=== PATIENT | female | born 1970 | race Caucasian/White ===

== ENCOUNTER 2020-07-11 19:25 | Emergency (ER) | payer MEDICAID ==
[~2020-07-11] VITALS: Ht 167.6 cm; Wt 63.5 kg
[2020-07-11 19:40] VITALS: BP_SYST 118
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
--- NOTE | 2020-07-11 19:55 | NUR ---
DR ROY IN TO ASSESS
--- NOTE | 2020-07-11 20:13 | NUR ---
X-RAY IN PROGRESS
--- NOTE | 2020-07-11 20:20 | NUR ---
REASSESSED, PT CALM, ALERT, MD AT BEDSIDE
[2020-07-11 20:23] VITALS: BP_SYST 120
--- NOTE | 2020-07-11 20:25 | NUR ---
Patient given written and verbal discharge instructions and verbalizes understanding. ER MD discussed with patient the results and treatment provided. Patient in stable condition. ID arm band removed. Rx of given. Patient educated on pain management and to follow up with PMD. Pain Scale 2/10 Opportunity for questions provided and answered. Medication side effect fact sheet provided.
== END 2020-07-11 20:25 | disposition home or self-care (01) ==
LOC: SED 19:25
DX: S90.31XA Contusion of right foot, initial encounter (principal); W20.8XXA Other cause of strike by thrown, projected or falling object, initial encounter; Y93.89 Activity, other specified; Y92.89 Other specified places as the place of occurrence of the external cause; Y99.8 Other external cause status
CPT/HCPCS: 81002; 81025; 99283

== ENCOUNTER 2021-06-17 22:58 | Emergency (ER) | payer MEDICAID ==
[~2021-06-17] VITALS: Ht 172.7 cm; Wt 74.8 kg
[2021-06-17 22:58] VITALS: BP_SYST 119
--- NOTE | 2021-06-17 23:48 | NUR ---
COVID SWAB PERFORMED OUTSIDE IN CAR, SAMPLE SENT TO LAB
--- NOTE | 2021-06-18 01:05 | NUR ---
Patient to ER bed 6 to gown for evaluation. Side rails up.
--- NOTE | 2021-06-18 01:12 | NUR ---
Patient BIB by family from home. C/O cough and shortness of breath x 1 week. Patient had cough, shortness of breath when coughing, seen by MD, Rx Zithromax and cough medication (can't recall name), no relief. A/O,X4, bodyache.
--- NOTE | 2021-06-18 01:56 | NUR ---
ER Dr. Em at bedside examining patient.
--- NOTE | 2021-06-18 02:10 | NUR ---
# 22 gauge angiocath placed to RAC. Use of asceptic technique. Opsite placed over site. Blood return noted. Blood for lab drawn from site. Flushed with 10 cc of normal saline. No evidence of infiltration noted. Patient tolerated well.
[2021-06-18] MEDS ORDERED: NACL 0.9% 1,000 ML IV ONE (02:15)
--- NOTE | 2021-06-18 02:16 | NUR ---
CXR at bedside.
[2021-06-18 02:23] LABS: BASOPHILS % (AUTO) 0.2 % (0.0-2.0); EOSINOPHILS # (AUTO) 0.1 K/uL (0.0-0.4); EOSINOPHILS % (AUTO) 0.7 % (0.0-4.0); HEMATOCRIT 36.4 % (36-48); HEMOGLOBIN 12.6 g/dL (12.0-16.0); LYMPHOCYTES # (AUTO) 1.2 K/uL (1.0-5.5); LYMPHOCYTES % (AUTO) 10.2 % (20.5-51.5); MEAN CORPUSCULAR HEMOGLOBIN 34 pg (27-31); MEAN CORPUSCULAR HGB CONC 35 % (32-36); MEAN CORPUSCULAR VOLUME 99 fL (79.0-98.0); MONOCYTES # (AUTO) 0.8 K/uL (0.0-1.0); MONOCYTES % (AUTO) 7.1 % (1.7-9.3); NEUTROPHILS # (AUTO) 9.4 K/uL (1.8-7.7); NEUTROPHILS % (AUTO) 81.8 % (40.0-70.0); PLATELET COUNT (AUTO) 226 K/uL (130-430); RED CELL DISTRIBUTION WIDTH 12.6 % (9.0-15.0); WHITE BLOOD COUNT (AUTO) 11.5 K/uL (4.8-10.8)
--- NOTE | 2021-06-18 02:23 | NUR ---
Flu A & B swabs collected and sent to lab.
[2021-06-18 02:48] LABS: CREATININE 0.7 mg/dL (0.55-1.30); POTASSIUM 3.7 mmol/L (3.5-5.1)
[2021-06-18 02:54] LABS: ALBUMIN 3.6 g/dL (3.4-4.8); TOTAL BILIRUBIN 0.4 mg/dL (0.0-1.0)
--- NOTE | 2021-06-18 03:46 | NUR ---
Patient signs consent for CTA chest w/contrast.
[2021-06-18] MEDS ORDERED: IOHEXOL 350 mgI/mL, 150 ML INFUS..BTL IV ONE (03:47)
--- NOTE | 2021-06-18 04:01 | NUR ---
Patient transported to radiology via wheelchair, accompanied by technician support association.
--- NOTE | 2021-06-18 04:11 | NUR ---
Patient came back from CT scan.
[2021-06-18 05:33] VITALS: BP_SYST 119
--- NOTE | 2021-06-18 05:33 | NUR ---
Patient given written and verbal discharge instructions and verbalizes understanding. ER MD discussed with patient the results and treatment provided. Patient in stable condition. ID arm band removed. IV catheter removed intact and dressing applied, no active bleeding. No Rx given. Patient educated on pain management and to follow up with PMD. Pain Scale 11/27. Opportunity for questions provided and answered.
== END 2021-06-18 05:33 | disposition home or self-care (01) ==
LOC: SED 22:58
DX: J20.9 Acute bronchitis, unspecified (principal); R19.7 Diarrhea, unspecified; Z20.822 Contact with and (suspected) exposure to COVID-19
CPT/HCPCS: 36415; 71045; 71275; 76376; 80053; 82550; 83880; 84484; 85025; 85379; 85610; 86710; 87426; 96360; 99285; J7030; Q9967 ×2